=== PATIENT | female | born 1945 | race Caucasian/White ===

== ENCOUNTER → 2022-07-25 16:12 | Outpatient (CLI) | payer MEDICARE, OTHER, SELFPAY ==
--- NOTE | 2022-07-25 16:16 | DI.MRI.S_ITS ---
PROCEDURE: MR CERVICAL SPINE WO CON INDICATIONS: Ataxia TECHNIQUE: Noncontrast sagittal T1 spin echo and T2 fast spin echo, sagittal STIR, foraminal oblique sagittal T2 fast spin echo, and axial gradient echo or T2 fast spin echo through the cervical spine. COMPARISON: None. FINDINGS: Image quality: Excellent. Alignment and Curvature: Trace anterolisthesis C5 on C6, C6 on C7. Bone Marrow: Marrow demonstrates normal overall signal. Spinal Cord: Visualized spinal cord has normal size and signal. No cerebellar tonsillar herniation. Paraspinous Soft Tissues: No paravertebral masses. Prevertebral soft tissues are normal in thickness. Discs: Overall moderate desiccation is present throughout the cervical spine, moderate to severe at C5-6 and C6-7. C2-C3: Minimal disc bulge without spinal stenosis or foraminal narrowing. C3-C4: Minimal disc bulge with posterior central protrusion. No foraminal narrowing. No spinal stenosis. C4-C5: Mild disc bulge without spinal stenosis. Mild left foraminal narrowing with uncovertebral hypertrophy. C5-C6: Mild disc bulge without spinal stenosis. Moderate left and mild right foraminal narrowing with uncovertebral hypertrophy. C6-C7: Mild disc bulge without spinal stenosis. Moderate to severe left foraminal narrowing with uncovertebral hypertrophy. C7-T1: Mild disc bulge with moderate bilateral foraminal narrowing. IMPRESSION: Multilevel disc bulges. No spinal stenosis. Foraminal narrowing is most prominent C5-6 and C6-7 secondary to uncovertebral arthropathy. Dictated by: Annette Ordonez M.D. on 07/26/2022 at 8:23 Approved by: Annette Ordonez M.D. on 07/26/2022 at 8:44
== END ==
PROVIDERS: Referring Provider Psychiatry & Neurology Neurology; Visit Provider Psychiatry & Neurology Neurology
DX: M50.321 Other cervical disc degeneration at C4-C5 level (principal); M48.02 Spinal stenosis, cervical region; M47.812 Spondylosis without myelopathy or radiculopathy, cervical region; R27.0 Ataxia, unspecified; R20.2 Paresthesia of skin
CPT/HCPCS: 72141